=== PATIENT | female | born 1995 | race Caucasian/White ===

== ENCOUNTER 2017-10-23 19:34 | Inpatient (IN) | payer BC ==
[2017-10-23] MEDS ORDERED: Sodium Chloride 0.9% 10 ML Syringe FLUSH PRN (19:40)
--- NOTE | 2017-10-23 20:11 | PCM.LDHP ---
<Arsen Douglas - Last Filed: 10/23/17 20:02> L&D History of Present Illness - General Date of Service: 10/23/17 Admit Problem/Dx: Patient Status Order with Admit Dx/Problem 10/23/17 19:40 Patient Status [ADT] Routine Admission Diagnosis/Problem Admission Diagnosis/Problem Source of Information: Patient History Limitations: Reports: No Limitations - History of Present Illness Introduction:: Luisa Burns is a pleasant 22 year old at 41 weeks and 1 one day gestation with an KIM of 0f 10/15/2017 for induction who presents to labor and delivery for induction of labor. She is Rh positive and has been tested for GBS which was negative. She currently denies having had any contractions - Related Data Allergies/Adverse Reactions: Allergies Allergy/AdvReac Type Severity Reaction Status Date / Time No Known Allergies Allergy Verified 10/23/17 19:58 Home Medications: Home Meds Vits #93/Iron Fum/FA [ Formula Tablet] 1 tab PO DAILY 10/23/17 [History] Past Medical History - Past Surgical History Neurological Surgical History: Reports: Scoliosis (Patient reports she has had corrective surgery for scoliosis) Musculoskeletal Surgical History: Reports: Other (See Below) (Patient reports a past history of scoliosis for which she had to have corrective surgery completed.) Oncologic Surgical History: Reports: None Dermatological Surgical History: Reports: None H&P Review of Systems - Review of Systems: Review Of Systems: See Below General: Reports: No Symptoms HEENT: Reports: No Symptoms Pulmonary: Reports: No Symptoms Cardiovascular: Reports: No Symptoms Gastrointestinal: Reports: No Symptoms Genitourinary: Reports: No Symptoms Musculoskeletal: Reports: No Symptoms Skin: Reports: No Symptoms Psychiatric: Reports: No Symptoms L&D Exam - Exam Exam: See Below - Vital Signs Weight: 166 lb 4 oz - Exam General: Alert, Oriented HEENT: Conjunctiva Clear, EOMI, Hearing Intact, Mucosa Moist & [place], Pupils Equal, Pupils Reactive Neck: Supple, Trachea Midline Lungs: Clear to Auscultation, Normal Respiratory Effort Cardiovascular: Regular Rate, Regular Rhythm GI/Abdominal Exam: Normal Bowel Sounds, Soft, Non-Tender, No Organomegaly, No Distention Back Exam: Full Range of Motion, Other (Visual inspection of the spine reveal a scar from an incision made during her corrective surgery for scoliosis) Extremities: Normal Inspection, Normal Range of Motion, Non-Tender, No Pedal Edema, Normal Capillary Refill Skin: Warm, Dry, Intact DTR: 2+: Bicep (L), Bicep (R), Patella (L), Patella (R) Psychiatric: Alert, Normal Affect, Normal Mood - Problem List (1) with 41 completed weeks gestation SNOMED Code(s): 21414987 ICD Code: Z3A.41 - 41 WEEKS GESTATION OF Status: Acute Current Visit: Yes Orders Last 24hrs: Active Orders 24 hr Category Date Time Status Patient Status [ADT] Routine ADT 10/23/17 19:40 Active Activity as Tolerated [RC] PFP Care 10/23/17 19:40 Active Communication Order [RC] ASDIRECTED Care 10/23/17 19:40 Active Heart Tones [RC] ASDIRECTED Care 10/23/17 19:41 Active Notify Provider [RC] PFP Care 10/23/17 19:40 Active Notify Provider [RC] PRN Care 10/23/17 19:40 Active Peripheral IV Care [RC] . DIRECTED Care 10/23/17 19:41 Active Vital Signs [RC] PER UNIT ROUTINE Care 10/23/17 19:40 Active Lactated Ringers [Ringers, Lactated] 1,000 ml Med 10/23/17 19:45 Active IV ASDIRECTED Misoprostol [Cytotec] Med 10/23/17 20:00 Active 25 mcg VAG Q3HR Sodium Chloride 0.9% [Saline Flush] Med 10/23/17 19:40 Active 10 ml FLUSH ASDIRECTED PRN Electronic Heart Tones Ext w TOCO [WOMSER] Oth 10/23/17 19:40 Ordered Routine Electronic Heart Tones Internal [WOMSER] Per Unit Oth 10/23/17 19:40 Ordered Routine Peripheral IV Insertion Adult [OM.PC] Routine Oth 10/23/17 19:40 Ordered Resuscitation Status Routine Resus Stat 10/23/17 19:40 Ordered Medication Orders Lactated Ringer's (Ringers, Lactated) 1,000 mls @ 100 mls/hr IV ASDIRECTED VANESSA Misoprostol (Cytotec) 25 mcg VAG Q3HR VANESSA Stop: 10/24/17 00:01 Sodium Chloride (Saline Flush) 10 ml FLUSH ASDIRECTED PRN PRN Reason: Keep Vein Open <Maximino Pedersen - Last Filed: 10/24/17 00:00> L&D History of Present Illness - General Admit Problem/Dx: Patient Status Order with Admit Dx/Problem 10/23/17 19:40 Patient Status [ADT] Routine Admission Diagnosis/Problem Admission Diagnosis/Problem Source of Information: Patient History Limitations: Reports: No Limitations - History of Present Illness Improves with: Reports: None Worsens with: Reports: None Associated Symptoms: Reports: N Past Medical History : 2 Para: 1 (1001) LMP (Approximate): H&P Review of Systems - Review of Systems: General: Reports: No Symptoms HEENT: Reports: No Symptoms Pulmonary: Reports: No Symptoms Cardiovascular: Reports: No Symptoms Gastrointestinal: Reports: No Symptoms Genitourinary: Reports: No Symptoms Musculoskeletal: Reports: No Symptoms Skin: Reports: No Symptoms Psychiatric: Reports: No Symptoms Neurological: Reports: No Symptoms Hematologic/Lymphatic: Reports: No Symptoms Immunologic: Reports: No Symptoms L&D Exam - Vital Signs Vital Signs: Last Vital Signs Temp 97.7 F 10/23/17 19:40 Pulse 71 10/23/17 19:40 Resp 16 10/23/17 19:40 BP 135/96 H 10/23/17 19:40 Pulse Ox - OB Specific Fundal Height In cm: 39 Movement: Active Heart Tones: Present Heart Tones per Min: 130 Heart Rate (FHR) Variability: Moderate (6-25 bmp) Presentation: Vertex - Go Score Go Score Cervix Position: Posterior Go Score Consistency: Soft Go Score Effacement: 31-50% Go Score Dilation: 1-2 cm Go Score Infant's Station: -1 ,0 Go Score Total: 6 - Exam General: Alert, Oriented HEENT: PERRLA, Conjunctiva Clear, EACs Clear, EOMI, Hearing Intact, Mucosa Moist & [place], Nares Patent, Normal Nasal Septum, Posterior Pharynx Clear, TMs Clear Neck: Supple, Trachea Midline Lungs: Clear to Auscultation, Normal Respiratory Effort Cardiovascular: Regular Rate, Regular Rhythm GI/Abdominal Exam: Normal Bowel Sounds, Soft, Non-Tender, No Distention Genitourinary: Normal external exam, Normal bimanual exam, Normal speculum exam Extremities: Normal Inspection, Normal Range of Motion, Non-Tender, No Pedal Edema, Normal Capillary Refill Skin: Warm, Dry, Intact Neurological: Reflexes Equal Bilateral Psychiatric: Alert, Normal Affect, Normal Mood - Patient Data Lab Results Last 24 hrs: Laboratory Results - last 24 hr 10/23/17 Range/Units 21:36 WBC 8.88 (3.98-10.04) K/mm3 RBC 3.80 L (3.98-5.22) M/mm3 Hgb 12.1 (11.2-15.7) gm/L Hct 34.4 (34.1-44.9) % MCV 90.5 (79.4-94.8) fl MCH 31.8 (25.6-32.2) pg MCHC 35.2 (32.2-35.5) g/dl RDW Std Deviation 40.4 (36.4-46.3) fL Plt Count 154 L (182-369) K/mm3 MPV 11.3 (9.4-12.3) fl Neut % (Auto) 61.3 (34.0-71.1) % Lymph % (Auto) 29.1 (19.3-51.7) % [place] % (Auto) 8.0 (4.7-12.5) % Eos % (Auto) 1.4 (0.7-5.8) Baso % (Auto) 0.1 (0.1-1.2) % Neut # (Auto) 5.45 (1.56-6.13) K/mm3 Lymph # (Auto) 2.58 (1.18-3.74) K/mm3 [place] # (Auto) 0.71 H (0.24-0.36) K/mm3 Eos # (Auto) 0.12 (0.04-0.36) K/mm3 Baso # (Auto) 0.01 (0.01-0.08) K/mm3 Result Diagrams: 10/23/17 21:36 - Problem List (1) with 41 completed weeks gestation SNOMED Code(s): 89525734 ICD Code: Z3A.41 - 41 WEEKS GESTATION OF Status: Acute Current Visit: Yes Problem List Initiated/Reviewed/Updated: No Orders Last 24hrs: Active Orders 24 hr Category Date Time Status Patient Status [ADT] Routine ADT 10/23/17 19:40 Active Activity as Tolerated [RC] PFP Care 10/23/17 19:40 Active Communication Order [RC] ASDIRECTED Care 10/23/17 19:40 Active Heart Tones [RC] ASDIRECTED Care 10/23/17 19:41 Active Notify Provider [RC] PFP Care 10/23/17 19:40 Active Notify Provider [RC] PRN Care 10/23/17 19:40 Active Peripheral IV Care [RC] . DIRECTED Care 10/23/17 19:41 Active Pump Management, Intrathecal [RC] ASDIRECTED Care 10/23/17 21:22 Active Urinary Catheter Assessment [RC] ASDIRECTED Care 10/23/17 21:20 Active Vital Signs [RC] PER UNIT ROUTINE Care 10/23/17 19:40 Active Regular Diet [DIET] Diet 10/23/17 Breakfast Active Lactated Ringers [Ringers, Lactated] 1,000 ml Med 10/23/17 19:45 Active IV ASDIRECTED Misoprostol [Cytotec] Med 10/23/17 20:00 Active 25 mcg VAG Q3HR Nalbuphine [Nubain] Med 10/23/17 21:20 Active 10 mg IVPUSH Q2H PRN Ondansetron [Zofran] Med 10/23/17 21:20 Active 4 mg IVPUSH Q4H PRN Oxytocin/Lactated Ringers [Pitocin in LR 10 Units/1,000 Med 10/23/17 21:30 Active ML] 10 unit in 1,000 ml IV .CONTINUOUS Oxytocin/Lactated Ringers [Pitocin in LR 10 Units/1,000 Med 10/23/17 21:30 Active ML] 10 unit in 1,000 ml IV TITRATE Sodium Chloride 0.9% [Saline Flush] Med 10/23/17 19:40 Active 10 ml FLUSH ASDIRECTED PRN Electronic Heart Tones Ext w TOCO [WOMSER] Oth 10/23/17 19:40 Ordered Routine Electronic Heart Tones Internal [WOMSER] Per Unit Oth 10/23/17 19:40 Ordered Routine Peripheral IV Insertion Adult [OM.PC] Routine Oth 10/23/17 19:40 Ordered Resuscitation Status Routine Resus Stat 10/23/17 19:40 Ordered Medication Orders Lactated Ringer's (Ringers, Lactated) 1,000 mls @ 100 mls/hr IV ASDIRECTED VANESSA Oxytocin/Lactated Ringer's (Pitocin In Lr 10 Units/1,000 Ml) 10 unit in 1,000 mls @ 100 mls/hr IV .CONTINUOUS VANESSA Oxytocin/Lactated Ringer's (Pitocin In Lr 10 Units/1,000 Ml) 10 unit in 1,000 mls @ 12 mls/hr IV TITRATE VANESSA; 2 MUNITS/MIN PRN Reason: Protocol Misoprostol (Cytotec) 25 mcg VAG Q3HR VANESSA Stop: 10/24/17 00:01 Nalbuphine HCl (Nubain) 10 mg IVPUSH Q2H PRN PRN Reason: Pain (moderate 4-6) Ondansetron HCl (Zofran) 4 mg IVPUSH Q4H PRN PRN Reason: Nausea/Vomiting Sodium Chloride (Saline Flush) 10 ml FLUSH ASDIRECTED PRN PRN Reason: Keep Vein Open Assessment/Plan Comment:: Patient seen, examined, discussed with student Plan induction and delivery
[2017-10-23] MEDS: Misoprostol 25 MCG (1/4 of 100 MCG) Tab VAG SCH (20:30)
[2017-10-23] MEDS ORDERED: Nalbuphine 20 MG/1 ML Amp IVPUSH PRN (21:20)
[2017-10-23] MEDS ORDERED: Ondansetron 4 MG/2 ML SDV IVPUSH PRN (21:20)
[2017-10-23] MEDS ORDERED: Oxytocin/Lactated Ringers 10 UNIT/1,000 ML BAG IV SCH ×2 (21:30)
--- NOTE | 2017-10-24 00:04 | PCM.SN ---
- Free Text/Narrative Note: Cytotec 25 g (second Cytotec) placed without difficulty. Cervix 1 cm, 70% effaced, soft, posterior, 0 to +1 station vertex. Her 1 heart rate
[2017-10-24] MEDS: Lactated Ringers 1,000 ML IV SCH ×2 (00:27→05:25)
[2017-10-24] MEDS ORDERED: Misoprostol 25 MCG (1/4 of 100 MCG) Tab ONE (03:09)
[2017-10-24] MEDS: Misoprostol 25 MCG (1/4 of 100 MCG) Tab VAG SCH ×2 (04:51)
[2017-10-24] MEDS ORDERED: fentaNYL 100 MCG/2 ML SDV ONE (05:02)
[2017-10-24] MEDS ORDERED: fentaNYL 100 MCG/2 ML SDV EPIDUR PRN (05:23)
[2017-10-24] MEDS ORDERED: Ondansetron 4 MG/2 ML SDV IVPUSH PRN (05:23)
[2017-10-24] MEDS ORDERED: ePHEDrine 50 MG/ML SDV IVPUSH PRN (05:23)
[2017-10-24] MEDS ORDERED: diphenhydrAMINE 50 MG/ML SDV IVPUSH PRN (05:23)
[2017-10-24] MEDS ORDERED: Bupivacaine/fentaNYL/NS 100 ML Bag EPIDUR SCH (05:30)
[2017-10-24] MEDS ORDERED: Lidocaine 1% 50 ML MDV ONE (06:30)
--- NOTE | 2017-10-24 06:31 | PCM.SN ---
- Free Text/Narrative Note: Attempted Epidural placement [id number] Patient educated on the risks of an epidural placement and the potential difficulty due to her known posterior spinal fusion with compensatory lumbar curvature. Patient was prepped and draped per standard sterile precautions. Epidural was attempted at the L2-3 and L3-4 lumbar interspaces. Epidural needle advanced with ease through the spinal ligaments, unable to advanced needle as it met a solid resistance at both levels. Patient repositioned and attempted again, unable to move past resistance. Angle of the needle was manipulated without success of placement. No CSF was detected throughout the procedure. No paresthesias noted throughout procedure. No radiating pain noted. Tolertated procedure well.
--- NOTE | 2017-10-24 06:36 | PCM.PREANE ---
Preanesthetic Assessment - Anesthesia/Transfusion/Family Hx Anesthesia History: Prior Anesthesia Without Reaction Family History of Anesthesia Reaction: No Transfusion History: No Prior Transfusion(s) - Review of Systems General: No Symptoms Pulmonary: No Symptoms Cardiovascular: No Symptoms Gastrointestinal: No Symptoms Neurological: No Symptoms, Other (History of Spinal Fusion per report T4-T12. ) Other: Reports: None - Physical Assessment O2 Sat by Pulse Oximetry: 99 Respiratory Rate: 16 Vital Signs: Last Vital Signs Temp 36.5 C 10/23/17 19:40 Pulse 71 10/23/17 19:40 Resp 16 10/23/17 19:40 BP 135/96 H 10/23/17 19:40 Pulse Ox Height: 1.65 m Weight: 75.41 kg ASA Class: 2 Mental Status: Alert & Oriented x3 Airway Class: Mallampati = 1 Dentition: Reports: Normal Dentition Thyro-Mental Finger Breadths: 3 Mouth Opening Finger Breadths: 3 ROM/Head Extension: Full Lungs: Clear to Auscultation, Normal Respiratory Effort Cardiovascular: Regular Rate, Regular Rhythm - Lab Values: Laboratory Last Values WBC 8.88 K/mm3 (3.98-10.04) 10/23/17 21:36 RBC 3.80 M/mm3 (3.98-5.22) L 10/23/17 21:36 Hgb 12.1 gm/L (11.2-15.7) 10/23/17 21:36 Hct 34.4 % (34.1-44.9) 10/23/17 21:36 MCV 90.5 fl (79.4-94.8) 10/23/17 21:36 MCH 31.8 pg (25.6-32.2) 10/23/17 21:36 MCHC 35.2 g/dl (32.2-35.5) 10/23/17 21:36 RDW Std Deviation 40.4 fL (36.4-46.3) 10/23/17 21:36 Plt Count 154 K/mm3 (182-369) L 10/23/17 21:36 MPV 11.3 fl (9.4-12.3) 10/23/17 21:36 Neut % (Auto) 61.3 % (34.0-71.1) 10/23/17 21:36 Lymph % (Auto) 29.1 % (19.3-51.7) 10/23/17 21:36 [place] % (Auto) 8.0 % (4.7-12.5) 10/23/17 21:36 Eos % (Auto) 1.4 (0.7-5.8) 10/23/17 21:36 Baso % (Auto) 0.1 % (0.1-1.2) 10/23/17 21:36 Neut # (Auto) 5.45 K/mm3 (1.56-6.13) 10/23/17 21:36 Lymph # (Auto) 2.58 K/mm3 (1.18-3.74) 10/23/17 21:36 [place] # (Auto) 0.71 K/mm3 (0.24-0.36) H 10/23/17 21:36 Eos # (Auto) 0.12 K/mm3 (0.04-0.36) 10/23/17 21:36 Baso # (Auto) 0.01 K/mm3 (0.01-0.08) 10/23/17 21:36 - Allergies Allergies/Adverse Reactions: Allergies Allergy/AdvReac Type Severity Reaction Status Date / Time No Known Allergies Allergy Verified 10/23/17 19:58 - Acknowledgements Anesthesia Type Planned: Epidural Pt an Appropriate Candidate for the Planned Anesthesia: Yes Alternatives and Risks of Anesthesia Discussed w Pt/Guardian: Yes Pt/Guardian Understands and Agrees with Anesthesia Plan: Yes PreAnesthesia Questionnaire REPORT CHECKER History: Reports: - Past Surgical History Neurological Surgical History: Reports: Scoliosis (Patient reports she has had corrective surgery for scoliosis) Musculoskeletal Surgical History: Reports: Other (See Below) (Patient reports a past history of scoliosis for which she had to have corrective surgery completed.) Oncologic Surgical History: Reports: None Dermatological Surgical History: Reports: None - SUBSTANCE USE Smoking Status *Q: Never Smoker Second Hand Smoke Exposure: No Recreational Drug Use History: No - HOME MEDS Home Medications: Home Meds Vits #93/Iron Fum/FA [ Formula Tablet] 1 tab PO DAILY 10/23/17 [History] - CURRENT (IN HOUSE) MEDS Current Meds: Current Medications Diphenhydramine HCl (Benadryl) 25 mg IVPUSH Q6H PRN PRN Reason: Pruritis Ephedrine Sulfate (Ephedrine Sulfate) 5 mg IVPUSH ASDIRECTED PRN PRN Reason: Hypotension Fentanyl (Sublimaze) 100 mcg EPIDUR ONETIME PRN PRN Reason: Pain Fentanyl/Bupivacaine HCl (Fentanyl/Bupivacaine/Ns 2 Mcg-0.125% 100 Ml) 100 ml EPIDUR ASDIRECTED VANESSA Lactated Ringer's (Ringers, Lactated) 1,000 mls @ 100 mls/hr IV ASDIRECTED [facility] Last Admin: 10/24/17 05:25 Dose: 999 mls/hr Oxytocin/Lactated Ringer's (Pitocin In Lr 10 Units/1,000 Ml) 10 unit in 1,000 mls @ 100 mls/hr IV .CONTINUOUS VANESSA Oxytocin/Lactated Ringer's (Pitocin In Lr 10 Units/1,000 Ml) 10 unit in 1,000 mls @ 12 mls/hr IV TITRATE VANESSA; 2 MUNITS/MIN PRN Reason: Protocol Nalbuphine HCl (Nubain) 10 mg IVPUSH Q2H PRN PRN Reason: Pain (moderate 4-6) Last Admin: 10/24/17 06:08 Dose: 10 mg Ondansetron HCl (Zofran) 4 mg IVPUSH Q4H PRN PRN Reason: Nausea/Vomiting Ondansetron HCl (Zofran) 4 mg IVPUSH ONETIME PRN PRN Reason: Nausea/Vomiting Sodium Chloride (Saline Flush) 10 ml FLUSH ASDIRECTED PRN PRN Reason: Keep Vein Open Discontinued Medications Fentanyl (Sublimaze) Confirm Administered Dose 100 mcg .ROUTE .STK-MED ONE Stop: 10/24/17 05:03 Misoprostol (Cytotec) 25 mcg VAG Q3HR [facility] Stop: 10/24/17 00:01 Last Admin: 10/24/17 04:51 Dose: Not Given Misoprostol (Cytotec) Confirm Administered Dose 25 mcg .ROUTE .STK-MED ONE Stop: 10/24/17 03:10 Last Admin: 10/24/17 04:51 Dose: Not Given
--- NOTE | 2017-10-24 07:09 | PCM.DEL ---
L & D Note - General Info Date of Service: 10/24/17 Mother's Due Date: 10/15/17 - Delivery Note Cervical Ripening Method: Misoprostil (5 g 2) Delivery Outcome: Livebirth (Male liveborn at 0643 hrs. Friday10/24/17 KITTY weight 3360 grams 7 pounds 6.5 ounces nuchal cord times one Apgars 9/9) Delivery Method: Spontaneous Vaginal Delivery-Single Infant Delivery Mode: Spontaneous Presentation: Left Occiput Anterior (KITTY) Nuchal Cord: Present (Times one reduced over the head) Prep: Povidone-Iodine (Betadine Anesthesia Type: Local (4 repair of first-degree laceration midline and left lateral) Local Anesthetic Volume: 5cc Amniotic Fluid Description: Clear Episiotomy Type: None Laceration: 1st Degree (Midline and left lateral) Suture type: Other Suture size: 3-0 Placenta: Intact, Spontaneous (Placenta delivered at 0645 on Friday10/24/17) Cord: 3 Vessels Estimated Blood Loss: 250 Resuscitation Needed: No [place]: Suctioned, Bulb Syringe, Stimulated, Warmed, [place] Used, Warmer Used Provider: Maximino Pedersen Score 1 min: 9 - Patient Data Vitals - Most Recent: Last Vital Signs Temp 97.7 F 10/23/17 19:40 Pulse 71 10/23/17 19:40 Resp 16 10/24/17 06:37 BP 135/96 H 10/23/17 19:40 Pulse Ox 99 10/24/17 06:37 Weight - Most Recent: 166 lb 4 oz Lab Results Last 24 Hours: Laboratory Results - last 24 hr 10/23/17 Range/Units 21:36 WBC 8.88 (3.98-10.04) K/mm3 RBC 3.80 L (3.98-5.22) M/mm3 Hgb 12.1 (11.2-15.7) gm/L Hct 34.4 (34.1-44.9) % MCV 90.5 (79.4-94.8) fl MCH 31.8 (25.6-32.2) pg MCHC 35.2 (32.2-35.5) g/dl RDW Std Deviation 40.4 (36.4-46.3) fL Plt Count 154 L (182-369) K/mm3 MPV 11.3 (9.4-12.3) fl Neut % (Auto) 61.3 (34.0-71.1) % Lymph % (Auto) 29.1 (19.3-51.7) % [place] % (Auto) 8.0 (4.7-12.5) % Eos % (Auto) 1.4 (0.7-5.8) Baso % (Auto) 0.1 (0.1-1.2) % Neut # (Auto) 5.45 (1.56-6.13) K/mm3 Lymph # (Auto) 2.58 (1.18-3.74) K/mm3 [place] # (Auto) 0.71 H (0.24-0.36) K/mm3 Eos # (Auto) 0.12 (0.04-0.36) K/mm3 Baso # (Auto) 0.01 (0.01-0.08) K/mm3 Med Orders - Current: Current Medications Diphenhydramine HCl (Benadryl) 25 mg IVPUSH Q6H PRN PRN Reason: Pruritis Ephedrine Sulfate (Ephedrine Sulfate) 5 mg IVPUSH ASDIRECTED PRN PRN Reason: Hypotension Fentanyl (Sublimaze) 100 mcg EPIDUR ONETIME PRN PRN Reason: Pain Fentanyl/Bupivacaine HCl (Fentanyl/Bupivacaine/Ns 2 Mcg-0.125% 100 Ml) 100 ml EPIDUR ASDIRECTED VANESSA Lactated Ringer's (Ringers, Lactated) 1,000 mls @ 100 mls/hr IV ASDIRECTED VANESSA Last Admin: 10/24/17 05:25 Dose: 999 mls/hr Oxytocin/Lactated Ringer's (Pitocin In Lr 10 Units/1,000 Ml) 10 unit in 1,000 mls @ 100 mls/hr IV .CONTINUOUS VANESSA Last Admin: 10/24/17 06:48 Dose: 500 mls/hr Oxytocin/Lactated Ringer's (Pitocin In Lr 10 Units/1,000 Ml) 10 unit in 1,000 mls @ 12 mls/hr IV TITRATE VANESSA; 2 MUNITS/MIN PRN Reason: Protocol Nalbuphine HCl (Nubain) 10 mg IVPUSH Q2H PRN PRN Reason: Pain (moderate 4-6) Last Admin: 10/24/17 06:08 Dose: 10 mg Ondansetron HCl (Zofran) 4 mg IVPUSH Q4H PRN PRN Reason: Nausea/Vomiting Ondansetron HCl (Zofran) 4 mg IVPUSH ONETIME PRN PRN Reason: Nausea/Vomiting Sodium Chloride (Saline Flush) 10 ml FLUSH ASDIRECTED PRN PRN Reason: Keep Vein Open Discontinued Medications Fentanyl (Sublimaze) Confirm Administered Dose 100 mcg .ROUTE .STK-MED ONE Stop: 10/24/17 05:03 Lidocaine HCl (Xylocaine 1%) Confirm Administered Dose 50 ml .ROUTE .STK-MED ONE Stop: 10/24/17 06:31 Last Admin: 10/24/17 06:47 Dose: 50 ml Misoprostol (Cytotec) 25 mcg VAG Q3HR VANESSA Stop: 10/24/17 00:01 Last Admin: 10/24/17 04:51 Dose: Not Given Misoprostol (Cytotec) Confirm Administered Dose 25 mcg .ROUTE .STK-MED ONE Stop: 10/24/17 03:10 Last Admin: 10/24/17 04:51 Dose: Not Given - Problem List & Annotations (1) with 41 completed weeks gestation SNOMED Code(s): 15535456 Code(s): Z3A.41 - 41 WEEKS GESTATION OF Status: Acute Current Visit: Yes (2) Nuchal cord without compression, delivered, current hospitalization SNOMED Code(s): 67504565 Code(s): O69.81X0 - LABOR AND DEL COMP BY CORD AROUND NECK, W/O COMPRSN, UNSP Status: Acute Current Visit: Yes (3) First degree laceration of perineum, delivered, current hospitalization SNOMED Code(s): 251913192 Code(s): O70.0 - FIRST DEGREE PERINEAL LACERATION DURING DELIVERY Status: Acute Current Visit: Yes - Problem List Review Problem List Initiated/Reviewed/Updated: No - My Orders Last 24 Hours: My Active Orders 10/23/17 19:40 Patient Status [ADT] Routine Activity as Tolerated [RC] PFP Communication Order [RC] ASDIRECTED Notify Provider [RC] PFP Notify Provider [RC] PRN Vital Signs [RC] PER UNIT ROUTINE Sodium Chloride 0.9% [Saline Flush] 10 ml FLUSH ASDIRECTED PRN Electronic Heart Tones Ext w TOCO [WOMSER] Routine Electronic Heart Tones Internal [WOMSER] Per Unit Routine Peripheral IV Insertion Adult [OM.PC] Routine Resuscitation Status Routine 10/23/17 19:41 Heart Tones [RC] ASDIRECTED Peripheral IV Care [RC] . DIRECTED 10/23/17 19:45 Lactated Ringers [Ringers, Lactated] 1,000 ml IV ASDIRECTED 10/23/17 21:20 Urinary Catheter Assessment [RC] ASDIRECTED Nalbuphine [Nubain] 10 mg IVPUSH Q2H PRN Ondansetron [Zofran] 4 mg IVPUSH Q4H PRN 10/23/17 21:22 Pump Management, Intrathecal [RC] ASDIRECTED 10/23/17 21:30 Oxytocin/Lactated Ringers [Pitocin in LR 10 Units/1,000 ML] 10 unit in 1,000 ml IV .CONTINUOUS Oxytocin/Lactated Ringers [Pitocin in LR 10 Units/1,000 ML] 10 unit in 1,000 ml IV TITRATE 10/23/17 Breakfast Regular Diet [DIET] - Plan Plan:: Patient seen, examined, discussed with student Plan induction and delivery
[2017-10-24] MEDS ORDERED: Benzocaine/Menthol 20%-0.5% Spray 56 GM Canister TOP PRN (07:52)
[2017-10-24] MEDS ORDERED: Lanolin 100% Cream 7 GM Tube TOP PRN (07:52)
[2017-10-24] MEDS ORDERED: Acetaminophen/oxyCODONE 325-5 MG Tab PO PRN (07:52)
[2017-10-24] MEDS ORDERED: Witch Hazel Medicated Pads 100/Jar TOP PRN (07:52)
[2017-10-24] MEDS ORDERED: Acetaminophen 325 MG Tab PO PRN (07:52)
[2017-10-24] MEDS ORDERED: Simethicone 80 MG Tab.Chew PO PRN (07:52)
[2017-10-24] MEDS ORDERED: Docusate Sodium 100 MG Cap PO PRN (07:52)
[2017-10-24] MEDS: Ibuprofen 600 MG Tab PO PRN ×2 (08:59→21:11)
--- NOTE | 2017-10-24 14:46 | PCM.SN ---
- Free Text/Narrative Note: Cervix 5 cm, 100 %, Soft, mid to anterior, Occiput posterior. Cat I FHR. Dr Leigh assume call 1700, report give.
--- NOTE | 2017-10-25 06:17 | PCM.PNPP ---
- General Info Date of Service: 10/25/17 Functional Status: Reports: Pain Controlled, Tolerating Diet, Ambulating, Urinating - Review of Systems General: Reports: No Symptoms Pulmonary: Reports: No Symptoms Cardiovascular: Reports: No Symptoms Gastrointestinal: Reports: No Symptoms Genitourinary: Reports: No Symptoms Musculoskeletal: Reports: No Symptoms - Patient Data Vital Signs - Most Recent: Last Vital Signs Temp 36.8 C 10/24/17 21:01 Pulse 60 10/24/17 21:01 Resp 14 10/24/17 21:01 BP 119/82 10/24/17 21:01 Pulse Ox 100 10/24/17 21:01 Weight - Most Recent: 75.41 kg I&O - Last 24 Hours: Intake & Output 10/24/17 10/24/17 10/25/17 14:59 22:59 06:59 Intake Total 2500 Balance 2500 Med Orders - Current: Current Medications Acetaminophen (Tylenol) 650 mg PO Q4H PRN PRN Reason: mild pain or fever Benzocaine/Menthol (Dermoplast Pain Relief [place]) 0 gm TOP ASDIRECTED PRN PRN Reason: Perineal Comfort Measure Last Admin: 10/24/17 08:59 Dose: 1 canister Docusate Sodium (Colace) 100 mg PO BID PRN PRN Reason: Constipation Last Admin: 10/24/17 21:11 Dose: 100 mg Emollient Ointment (Lansinoh Hpa) 0 gm TOP ASDIRECTED PRN PRN Reason: Sore Nipples Ibuprofen (Motrin) 600 mg PO Q4H PRN PRN Reason: Mild pain or fever Last Admin: 10/24/17 21:11 Dose: 600 mg Oxycodone/Acetaminophen (Percocet 325-5 Mg) 2 tab PO Q4H PRN PRN Reason: Pain (moderate 4-6) Simethicone (Simethicone) 80 mg PO Q4H PRN PRN Reason: Gas Witch Karen (Tucks) 1 pad TOP ASDIRECTED PRN PRN Reason: Hemorrhoid pain Last Admin: 10/24/17 08:59 Dose: 1 tub Discontinued Medications Diphenhydramine HCl (Benadryl) 25 mg IVPUSH Q6H PRN PRN Reason: Pruritis Ephedrine Sulfate (Ephedrine Sulfate) 5 mg IVPUSH ASDIRECTED PRN PRN Reason: Hypotension Fentanyl (Sublimaze) Confirm Administered Dose 100 mcg .ROUTE .STK-MED ONE Stop: 10/24/17 05:03 Last Admin: 10/24/17 09:56 Dose: Not Given Fentanyl (Sublimaze) 100 mcg EPIDUR ONETIME PRN PRN Reason: Pain Fentanyl/Bupivacaine HCl (Fentanyl/Bupivacaine/Ns 2 Mcg-0.125% 100 Ml) 100 ml EPIDUR ASDIRECTED VANESSA Lactated Ringer's (Ringers, Lactated) 1,000 mls @ 100 mls/hr IV ASDIRECTED VANESSA Last Admin: 10/24/17 05:25 Dose: 999 mls/hr Oxytocin/Lactated Ringer's (Pitocin In Lr 10 Units/1,000 Ml) 10 unit in 1,000 mls @ 100 mls/hr IV .CONTINUOUS VANESSA Last Admin: 10/24/17 06:48 Dose: 500 mls/hr Oxytocin/Lactated Ringer's (Pitocin In Lr 10 Units/1,000 Ml) 10 unit in 1,000 mls @ 12 mls/hr IV TITRATE VANESSA; 2 MUNITS/MIN PRN Reason: Protocol Lidocaine HCl (Xylocaine 1%) Confirm Administered Dose 50 ml .ROUTE .STK-MED ONE Stop: 10/24/17 06:31 Last Admin: 10/24/17 06:47 Dose: 50 ml Misoprostol (Cytotec) 25 mcg VAG Q3HR VANESSA Stop: 10/24/17 00:01 Last Admin: 10/24/17 04:51 Dose: Not Given Misoprostol (Cytotec) Confirm Administered Dose 25 mcg .ROUTE .STK-MED ONE Stop: 10/24/17 03:10 Last Admin: 10/24/17 04:51 Dose: Not Given Nalbuphine HCl (Nubain) 10 mg IVPUSH Q2H PRN PRN Reason: Pain (moderate 4-6) Last Admin: 10/24/17 06:08 Dose: 10 mg Ondansetron HCl (Zofran) 4 mg IVPUSH Q4H PRN PRN Reason: Nausea/Vomiting Ondansetron HCl (Zofran) 4 mg IVPUSH ONETIME PRN PRN Reason: Nausea/Vomiting Sodium Chloride (Saline Flush) 10 ml FLUSH ASDIRECTED PRN PRN Reason: Keep Vein Open - Interaction Disposition, : in Room with Family Interaction: Holding Infant Infant Feeding: Bottle Fed Infant Support Person: Significant Other - Recovery Exam Fundal Tone: Firm Fundal Level: 2 Fingerbreadths Below Umbilicus Fundal Placement: Midline Lochia Amount: Small Lochia Color: Rubra/Red Perineum Description: Intact, Minimal Bruising/Swelling Other Perinuem Description: 1st deg lac with repair Episiotomy/Laceration: Approximated Bladder Status: Voiding - Exam General: Alert, Oriented, Cooperative GI/Abdominal Exam: Soft, Non-Tender Extremities: Normal Inspection Skin: Warm, Dry, Intact - Problem List & Annotations (1) First degree laceration of perineum, delivered, current hospitalization SNOMED Code(s): 055151551 Code(s): O70.0 - FIRST DEGREE PERINEAL LACERATION DURING DELIVERY Status: Acute Current Visit: Yes (2) Nuchal cord without compression, delivered, current hospitalization SNOMED Code(s): 88657446 Code(s): O69.81X0 - LABOR AND DEL COMP BY CORD AROUND NECK, W/O COMPRSN, UNSP Status: Acute Current Visit: Yes (3) with 41 completed weeks gestation SNOMED Code(s): 20865010 Code(s): Z3A.41 - 41 WEEKS GESTATION OF Status: Acute Current Visit: Yes - Problem List Review Problem List Initiated/Reviewed/Updated: Yes - Assessment Assessment:: PPD#1 from - Plan Plan:: * Routine cares * Encourage breast feeding * Discharge home today
--- NOTE | 2017-10-25 06:19 | PCM.DCSUM1 ---
Discharge Summary - Discharge Data Discharge Date: 10/25/17 Discharge Disposition: Home, Self-Care 01 Condition: Good - Patient Summary/Data Complications: None Consults: None Recommended Follow-up Testing/Procedures: Follow up in [address] Pedersen Hospital Course: 22 y/o at 41 1/7 wks who presented for IOL for dates. This was done with cytotec. She progressed well and underwent an uncomplicated . See delivery note. she did well and was discharged home on PPD#1 - Patient Instructions Diet: Regular Diet as Tolerated Activity: As Tolerated Activity, Other: Pelvic Rest for 6 weeks Driving: May Drive Today Showering/Bathing: December Shower Notify Provider of: Fever, Increased Pain, Swelling and Redness, Drainage, Nausea and/or Vomiting - Discharge Plan Home Medications: Home Meds Vits #93/Iron Fum/FA [ Formula Tablet] 1 tab PO DAILY 10/23/17 [History] Docusate Sodium [Colace] 100 mg PO BID PRN cap 10/25/17 [Rx] Ibuprofen [IJD: Ibuprofen] 600 mg PO Q4H PRN tablet 10/25/17 [Rx] Patient Handouts: Home Care Instructions for Mom Referrals: Maximino Pedersen MD [Primary Care Provider] - (2 weeks for check ) - Discharge Summary/Plan Comment DC Time >30 min.: No - Patient Data Vitals - Most Recent: Last Vital Signs Temp 36.8 C 10/24/17 21:01 Pulse 60 10/24/17 21:01 Resp 14 10/24/17 21:01 BP 119/82 10/24/17 21:01 Pulse Ox 100 10/24/17 21:01 Weight - Most Recent: 75.41 kg I&O - Last 24 hours: Intake & Output 10/24/17 10/24/17 10/25/17 14:59 22:59 06:59 Intake Total 2500 Balance 2500 Med Orders - Current: Current Medications Acetaminophen (Tylenol) 650 mg PO Q4H PRN PRN Reason: mild pain or fever Benzocaine/Menthol (Dermoplast Pain Relief [place]) 0 gm TOP ASDIRECTED PRN PRN Reason: Perineal Comfort Measure Last Admin: 10/24/17 08:59 Dose: 1 canister Docusate Sodium (Colace) 100 mg PO BID PRN PRN Reason: Constipation Last Admin: 10/24/17 21:11 Dose: 100 mg Emollient Ointment (Lansinoh Hpa) 0 gm TOP ASDIRECTED PRN PRN Reason: Sore Nipples Ibuprofen (Motrin) 600 mg PO Q4H PRN PRN Reason: Mild pain or fever Last Admin: 10/24/17 21:11 Dose: 600 mg Oxycodone/Acetaminophen (Percocet 325-5 Mg) 2 tab PO Q4H PRN PRN Reason: Pain (moderate 4-6) Simethicone (Simethicone) 80 mg PO Q4H PRN PRN Reason: Gas Witch Karen (Tucks) 1 pad TOP ASDIRECTED PRN PRN Reason: Hemorrhoid pain Last Admin: 10/24/17 08:59 Dose: 1 tub Discontinued Medications Diphenhydramine HCl (Benadryl) 25 mg IVPUSH Q6H PRN PRN Reason: Pruritis Ephedrine Sulfate (Ephedrine Sulfate) 5 mg IVPUSH ASDIRECTED PRN PRN Reason: Hypotension Fentanyl (Sublimaze) Confirm Administered Dose 100 mcg .ROUTE .[employer]-[place] ONE Stop: 10/24/17 05:03 Last Admin: 10/24/17 09:56 Dose: Not Given Fentanyl (Sublimaze) 100 mcg EPIDUR ONETIME PRN PRN Reason: Pain Fentanyl/Bupivacaine HCl (Fentanyl/Bupivacaine/Ns 2 Mcg-0.125% 100 Ml) 100 ml EPIDUR ASDIRECTED VANESSA Lactated Ringer's (Ringers, Lactated) 1,000 mls @ 100 mls/hr IV ASDIRECTED VANESSA Last Admin: 10/24/17 05:25 Dose: 999 mls/hr Oxytocin/Lactated Ringer's (Pitocin In Lr 10 Units/1,000 Ml) 10 unit in 1,000 mls @ 100 mls/hr IV .CONTINUOUS VANESSA Last Admin: 10/24/17 06:48 Dose: 500 mls/hr Oxytocin/Lactated Ringer's (Pitocin In Lr 10 Units/1,000 Ml) 10 unit in 1,000 mls @ 12 mls/hr IV TITRATE VANESSA; 2 MUNITS/MIN PRN Reason: Protocol Lidocaine HCl (Xylocaine 1%) Confirm Administered Dose 50 ml .ROUTE .STCorTec-MED ONE Stop: 10/24/17 06:31 Last Admin: 10/24/17 06:47 Dose: 50 ml Misoprostol (Cytotec) 25 mcg VAG Q3HR VANESSA Stop: 10/24/17 00:01 Last Admin: 10/24/17 04:51 Dose: Not Given Misoprostol (Cytotec) Confirm Administered Dose 25 mcg .ROUTE .STK-MED ONE Stop: 10/24/17 03:10 Last Admin: 10/24/17 04:51 Dose: Not Given Nalbuphine HCl (Nubain) 10 mg IVPUSH Q2H PRN PRN Reason: Pain (moderate 4-6) Last Admin: 10/24/17 06:08 Dose: 10 mg Ondansetron HCl (Zofran) 4 mg IVPUSH Q4H PRN PRN Reason: Nausea/Vomiting Ondansetron HCl (Zofran) 4 mg IVPUSH ONETIME PRN PRN Reason: Nausea/Vomiting Sodium Chloride (Saline Flush) 10 ml FLUSH ASDIRECTED PRN PRN Reason: Keep Vein Open *Q Meaningful Use (DIS) - VTE *Q VTE Criteria *Q: - Stroke *Q Stroke Criteria *Q: - AMI *Q AMI Criteria *Q:
== END 2017-10-25 16:35 | disposition home or self-care (01) | DRG 560 ==
LOC: JD.OB 19:34 → OBSVTOIN 10-24 06:43 → JD.MS 10-24 06:43 → JD.OB 10-24 10:38
PROVIDERS: ADMIT Obstetrics & Gynecology; ATTEND Obstetrics & Gynecology
PROC: 10E0XZZ Delivery of Products of Conception, External Approach (ICD-10-PCS; principal; 2017-10-24)
PROC: 3E0P7VZ Introduction of Hormone into Female Reproductive, Via Natural or Artificial Opening (ICD-10-PCS; 2017-10-24)
PROC: 0HQ9XZZ Repair Perineum Skin, External Approach (ICD-10-PCS; 2017-10-24)
PROC: 00HU33Z Insertion of Infusion Device into Spinal Canal, Percutaneous Approach (ICD-10-PCS; 2017-10-24)
PROC: 3E0R3BZ Introduction of Anesthetic Agent into Spinal Canal, Percutaneous Approach (ICD-10-PCS; 2017-10-24)
DX: O48.0 Post-term pregnancy (principal); Z3A.41 41 weeks gestation of pregnancy; Z37.0 Single live birth; O70.0 First degree perineal laceration during delivery; O69.81X0 Labor and delivery complicated by cord around neck, without compression, not applicable or unspecified
CPT/HCPCS: 36415; 59300; 59409; 85025; A9270-GY; J2300; J2590; J7120

== ENCOUNTER 2023-06-06 07:11 | Inpatient (IN) | payer BC ==
[2023-06-06] MEDS ORDERED: Lidocaine 1% 50 ML MDV INJECT ONE (07:27)
[2023-06-06] MEDS ORDERED: Ondansetron 4 MG/2 ML SDV IVPUSH PRN (07:27)
[2023-06-06] MEDS ORDERED: Nalbuphine HCl 10 MG/ 1ML Amp IVPUSH PRN (07:27)
[2023-06-06] MEDS ORDERED: Sodium Chloride 0.9% 10 ML Syringe FLUSH PRN (07:27)
[2023-06-06] MEDS ORDERED: Acetaminophen 325 MG Tab PO PRN ×2 (07:27→13:39)
[2023-06-06] MEDS ORDERED: Lactated Ringers 1,000 ML IV SCH (07:30)
[2023-06-06] MEDS ORDERED: Oxytocin/Lactated Ringers 10 UNIT/1,000 ML BAG IV SCH ×2 (07:30)
[2023-06-06 08:20] LABS: BASOPHILS PERCENT AUTO 0.3 % (0.0-1.0); EOSINOPHILS ABSOLUTE AUTO 0.1 K/mm3 (0.0-0.4); EOSINOPHILS PERCENT AUTO 1.4 % (0.0-6.0); HEMATOCRIT 35.8 % (37.0-47.0); HEMOGLOBIN 12.8 gm/dl (12.0-16.0); IMMATURE GRAN ABSOLUTE AUTO 0.03 K/mm3 (0.00-0.05); IMMATURE GRAN PERCENT AUTO 0.5 % (0.0-0.4); LYMPHOCYTES ABSOLUTE AUTO 1.6 K/mm3 (1.0-4.8); LYMPHOCYTES PERCENT AUTO 27.7 % (24.0-44.0); MEAN CORPUSCULAR HEMOGLOBIN 32.1 pg (28.0-32.0); MEAN CORPUSCULAR HGB CONC 35.8 g/dl (32.0-36.0); MEAN CORPUSCULAR VOLUME 89.7 fl (83.0-99.0); MEAN PLATELET VOLUME 11.5 fl (9.4-12.3); MONOCYTES ABSOLUTE AUTO 0.4 K/mm3 (0.0-0.8); MONOCYTES PERCENT AUTO 7.3 % (0.0-8.0); NEUTROPHILS ABSOLUTE AUTO 3.6 K/mm3 (1.8-7.7); NEUTROPHILS PERCENT AUTO 62.8 % (41.0-71.0); PLATELET COUNT,PLT 142 K/mm3 (150-400); RED BLOOD CELL COUNT 3.99 M/mm3 (4.10-5.30); WHITE BLOOD CELL COUNT,WBC 5.73 K/mm3 (3.9-11.3)
[2023-06-06] MEDS ORDERED: Sodium Chloride 0.9% 10 ML Syringe FLUSH SCH (09:00)
[2023-06-06] MEDS ORDERED: Docusate Sodium 100 MG Cap PO PRN (13:39)
[2023-06-06] MEDS ORDERED: Benzocaine/Menthol 20%-0.5% Spray 78 GM Cannister TOP PRN (13:39)
[2023-06-06] MEDS ORDERED: Witch Hazel Medicated Pads 40/Jar TOP PRN (13:39)
[2023-06-06] MEDS ORDERED: Ibuprofen 600 MG Tab PO PRN (13:39)
== END 2023-06-07 09:00 | disposition home or self-care (01) | DRG 560 ==
LOC: UNDOADMOB 07:11 → JD.OB 07:11 → OBSVTOIN 13:18 → JD.OB 13:18 → INTOOBSV 13:18 → JD.OB 13:49 → UNDODISIN 06-07 09:00
PROVIDERS: ADMIT Obstetrics & Gynecology; ATTEND Obstetrics & Gynecology
PROC: 10E0XZZ Delivery of Products of Conception, External Approach (ICD-10-PCS; principal; 2023-06-06)
PROC: 10907ZC Drainage of Amniotic Fluid, Therapeutic from Products of Conception, Via Natural or Artificial Opening (ICD-10-PCS; 2023-06-06)
DX: O80 Encounter for full-term uncomplicated delivery (principal); Z37.0 Single live birth; Z3A.39 39 weeks gestation of pregnancy
CPT/HCPCS: 36415; 59025; 59409; 85025; 86592; 86850; 86900; 86901; J2300; J2590